=== PATIENT | female | born 1990 | race Caucasian/White ===

== ENCOUNTER → 2016-12-22 | Outpatient (CLI) | payer OTHER ==
[~2016-12-22] MED LIST: BIRTH CONTRO; BUPR75TA6 PO; LEVOTHYROXINE; LORA0.5T PO; METO25TA35 PO; NORE-73 PO; ONDA4TAB10 PO; SUMA25TA3 PO
== END | disposition home or self-care (01) ==
LOC: STAR 12:21
PROVIDERS: ATTEND Physical Medicine & Rehabilitation Hospice and Palliative Medicine
DX: R07.9 Chest pain, unspecified (principal)
CPT/HCPCS: 93005

== ENCOUNTER 2018-08-22 10:47 | Emergency (ER) | payer OTHER ==
[~2018-08-22] VITALS: Ht 175.3 cm; Wt 86.0 kg
--- NOTE | 2018-08-22 11:22 | NUR ---
TO ROOM FROM LOBBY, GAIT SLOW AND STEADY
[2018-08-22] MEDS ORDERED: DIPHENHYDRAMINE 50 MG/ML, 1ML IVPush ONE (12:00)
[2018-08-22] MEDS ORDERED: KETOROLAC 30 MG/1 ML IVPush ONE (12:00)
[2018-08-22] MEDS ORDERED: SODIUM CHLORIDE FLUSH 10ML SYR IVF ONE (12:00)
[2018-08-22] MEDS ORDERED: METOCLOPRAMIDE 5 MG/ML, 2ML IVPush ONE (12:00)
[2018-08-22] MEDS ORDERED: METOCLOPRAMIDE 5 MG/ML, 2ML ONE (12:15)
[2018-08-22] MEDS ORDERED: DIPHENHYDRAMINE 50 MG/ML, 1ML ONE (12:15)
[2018-08-22] MEDS ORDERED: KETOROLAC 30 MG/1 ML ONE (12:15)
[2018-08-22 12:20] LABS: BASOPHILS # (AUTO) 0.03 x10^3/uL (0-0.1); BASOPHILS % (AUTO) 0 % (0-1); EOSINOPHILS # (AUTO) 0.05 x10^3/uL (0-0.4); EOSINOPHILS % (AUTO) 1 % (1-7); LYMPHOCYTES # (AUTO) 2.45 x10^3/uL (1-3.4); LYMPHOCYTES % (AUTO) 31 % (22-44); MD NO; MEAN CORPUSCULAR HGB CONC 34.5 g/dL (32.4-35.8); MEAN CORPUSCULAR VOLUME 95.7 fL (80-100); MEAN PLATELET VOLUME 8.7 fL (7.4-10.4); MONOCYTES # (AUTO) 0.62 x10^3/uL (0.2-0.8); MONOCYTES % (AUTO) 8 % (2-9); NEUTROPHILS # (AUTO) 4.68 x10^3/uL (1.8-6.8); NEUTROPHILS % (AUTO) 60 % (42-75); PLATELET COUNT 290 x10^3/uL (130-400); RED BLOOD COUNT 4.48 x10^6/uL (3.82-5.3); RED CELL DISTRIBUTION WIDTH 13.1 % (9.6-15.2)
[2018-08-22 12:32] LABS: ALANINE AMINOTRANSFERASE 32 U/L (12-78); ALBUMIN 3.9 g/dL (3.4-5.0); ANION GAP 7 mmol/L (5-15); CALCIUM 8.9 mg/dL (8.5-10.1); CHLORIDE 112 mmol/L (98-107); CREATININE 1.04 mg/dL (0.55-1.02)
[2018-08-22 12:34] LABS: D-DIMER 0.19 ug/mlFEU (0.00-0.52); PROTHROMBIN TIME 10.5 Seconds (9.6-11.5)
[2018-08-22 12:37] LABS: ALKALINE PHOSPHATASE 50 U/L (45-117); BILIRUBIN,TOTAL 0.3 mg/dL (0.2-1.0); TOTAL PROTEIN 7.3 g/dL (6.4-8.2); TROPONIN I < 0.015 ng/mL (0.000-0.045)
--- NOTE | 2018-08-22 13:00 | NUR ---
PATIENT REPORTS RESOLUTION OF FRANCO TO 05/29, TAKING PO FLUIDS. 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
[2018-08-22 13:32] VITALS: BP 129/89
== END 2018-08-22 13:35 | disposition home or self-care (01) ==
LOC: ED 13:23
DX: R07.89 Other chest pain (principal); F17.200 Nicotine dependence, unspecified, uncomplicated; E05.90 Thyrotoxicosis, unspecified without thyrotoxic crisis or storm
CPT/HCPCS: 36415; 71045; 80053; 83880; 84443; 84484; 85025; 85379; 85610; 85730; 93005; 96374; 96375; 99284; J1200; J1885; J2765

== ENCOUNTER 2018-08-23 11:33 | Emergency (ER) | payer OTHER ==
[~2018-08-23] VITALS: Ht 175.3 cm; Wt 87.0 kg
--- NOTE | 2018-08-23 12:22 | NUR ---
ERP WAS IN TO SEE PT. PT REPORTS PAIN IS INTERMITTENT, INTENSIFIED AFTER EATING BAGEL THIS AM. PT DOES REPORT FAMILY HX OF HEART PROBLEMS.
[2018-08-23] MEDS ORDERED: FAMOTIDINE 20 MG TABLET PO ONE (12:30)
[2018-08-23] MEDS ORDERED: MAALOX/HYOSCYAMINE/LIDOCAINE 45 ML BTL PO ONE (12:30)
[2018-08-23] MEDS ORDERED: FAMOTIDINE 20 MG TABLET ONE (12:30)
[2018-08-23] MEDS ORDERED: MAALOX/HYOSCYAMINE/LIDOCAINE 45 ML BTL ONE (12:30)
[2018-08-23 12:41] LABS: MEAN CORPUSCULAR HGB CONC 33.6 g/dL (32.4-35.8); MEAN CORPUSCULAR VOLUME 95.4 fL (80-100); MEAN PLATELET VOLUME 8.5 fL (7.4-10.4); PLATELET COUNT 248 x10^3/uL (130-400); RED BLOOD COUNT 4.11 x10^6/uL (3.82-5.3); RED CELL DISTRIBUTION WIDTH 12.9 % (9.6-15.2)
[2018-08-23 12:52] LABS: ALANINE AMINOTRANSFERASE 21 U/L (12-78); ALBUMIN 3.5 g/dL (3.4-5.0); ANION GAP 6 mmol/L (5-15); CALCIUM 8.6 mg/dL (8.5-10.1); CHLORIDE 113 mmol/L (98-107); CREATININE 0.69 mg/dL (0.55-1.02)
[2018-08-23 12:56] LABS: ALKALINE PHOSPHATASE 40 U/L (45-117); BILIRUBIN,TOTAL 0.1 mg/dL (0.2-1.0); TOTAL PROTEIN 6.5 g/dL (6.4-8.2); TROPONIN I < 0.015 ng/mL (0.000-0.045)
[2018-08-23 13:00] LABS: BASOPHILS # (AUTO) 0.07 x10^3/uL (0-0.1); BASOPHILS % (AUTO) 1 % (0-1); EOSINOPHILS # (AUTO) 0.08 x10^3/uL (0-0.4); EOSINOPHILS % (AUTO) 1 % (1-7); LYMPHOCYTES # (AUTO) 3.04 x10^3/uL (1-3.4); LYMPHOCYTES % (AUTO) 31 % (22-44); MD SCAN; MONOCYTES # (AUTO) 0.63 x10^3/uL (0.2-0.8); MONOCYTES % (AUTO) 6 % (2-9); NEUTROPHILS % (AUTO) 62 % (42-75)
--- NOTE | 2018-08-23 13:10 | NUR ---
PT WAS UP TO BR. STILL REPORTS INTERMITTENT SHARP CHEST PAIN, UNRELATED TO MOVEMENT OR POSITIONING. STATES MEDS DIDN'T HELP.
[2018-08-23 13:11] VITALS: BP 106/70
--- NOTE | 2018-08-23 13:43 | NUR ---
ERP WAS IN FOR RE-EVAL.
--- NOTE | 2018-08-23 14:05 | NUR ---
D/C INSTRUCTIONS & F/U APPT RV'WD WITH PT, SHE VERBALIZES UNDERSTANDING. AMBULATED OUT OF ED WITH MOTHER WITHOUT DIFFICULTY.
== END 2018-08-23 14:07 | disposition home or self-care (01) ==
LOC: ED 11:40
DX: R07.89 Other chest pain (principal); Z90.89 Acquired absence of other organs
CPT/HCPCS: 36415; 80053; 83690; 84484; 85025; 93005; 99283; 99284

== ENCOUNTER 2020-03-16 11:53 | Emergency (ER) | payer OTHER ==
--- NOTE | 2020-03-16 12:25 | NUR ---
no answer from triage
--- NOTE | 2020-03-16 12:57 | NUR ---
no answer from triage
== END 2020-03-16 14:30 | disposition left against medical advice (07) ==
LOC: ED 14:24
DX: R51.9 Headache, unspecified (principal); Z53.21 Procedure and treatment not carried out due to patient leaving prior to being seen by health care provider